=== PATIENT | male | born 1955 | race Caucasian/White ===

== ENCOUNTER 2019-04-07 14:57 | Emergency (ER) | payer OTHER, SELFPAY ==
[2019-04-07 14:58] VITALS: BP 192/113; PULSE 94; RESP 18; TEMP 36.7; O2SAT 93; BMI 36.5
[2019-04-07] MEDS: HYDROcodone Bitartrate/Apap 5/325 Tablet PO (15:14)
--- NOTE | 2019-04-07 15:14 | ED.VISSUMM ---
- ER Visit Summary Date of Service: 04/07/19 Chief Complaint: Fall History of Present Illness: The patient is a 63 M who fell 2 days ago. His foot got caught on the running boards when he was getting out of his full-size pickup. He landed on his left side. He complains of left-sided chest pain. Denies loss of consciousness. Denies head or neck pain or injury. He did hit his left upper arm as well, but it is not bothering him too much. Denies shortness of breath. Denies abdominal pain or back pain. Denies any hip or leg injury. He says the pain is worse with movement, breathing, and laying on his left side. He has been taking ibuprofen with minimal relief. He denies blood thinner use. Denies cough, hemoptysis, or any respiratory symptoms. Physical Examination: Afebrile and vital signs unremarkable except blood pressure is 192/113. He is alert and oriented. No acute distress. GCS 15. Breathing comfortably. Lungs are clear. Left lateral chest is tender to palpation without crepitus or any other abnormalities. Heart is regular. Abdomen soft. Back is nontender. Extremities nontender with good range of motion, strength, and sensation. Test Results: Chest and left rib series pending. Emergency Department Course and Treatment: Patient treated with [place] while awaiting results. I believe he has a chest wall contusion or possible rib fracture. He has no head or neck trauma. No other injuries, complaints, symptoms, or abnormal findings on exam. Will check chest and rib x-rays. X-rays negative. Patient treated with incentive spirometer and pain medicine. Follow-up with primary care for recheck. Patient was counseled about his hypertension. He will continue taking his medications and follow-up with his PCP for recheck and further care. Treatment Plan: As above Disposition: Discharge Impression: 1. Left chest wall pain 2. Hypertension This note was generated with [employer] software. It may contain incorrect words, spelling, and punctuation that were not noted in review of the chart prior to signing ED Disposition - Plan for ED Patient: Referrals: Melissa Victor MD [STAFF PHYSICIAN] -
[2019-04-07 15:16] VITALS: BP 171/115
--- NOTE | 2019-04-07 15:24 | RAD_ITS ---
STUDY: X-RAY - UNILATERAL RIBS ( LEFT ) WITH CHEST REASON FOR EXAM: Male, 63 years old. Fall. Rib pain. TECHNIQUE - RIBS: 4 view(s) of the ribs. TECHNIQUE - CHEST: Frontal view COMPARISON: None. FINDINGS - RIBS: There are age-indeterminate fractures of the right third through fifth ribs. There are no displaced left-sided rib fractures identified. FINDINGS - CHEST: The lungs are clear. There are no pleural effusions. There is no pneumothorax. The heart is normal in size. RAD/Ribs Uni Min 3V w/PA Chest IMPRESSION: RIBS: No displaced left-sided rib fracture identified. Age indeterminant right third through fifth rib fractures. CHEST: Clear lungs. Electronically Signed: Thompson Ortez, at 16:08 EDT Tel , Service support ,
--- NOTE | 2019-04-07 16:18 | ED.DEP ---
ED Disposition - Plan for ED Patient: Instructions: Chest Wall Contusion Prescriptions: Hydrocodone Bitart/Apap 5-325 [[place] 5MG-325MG] 1 tab PO Q6H PRN PRN 3 Days #10 tab PRN Reason: Pain Prescription Printed Referrals: Melissa Victor MD [STAFF PHYSICIAN] -
[2019-04-07 16:26] VITALS: BP 128/91; PULSE 82; RESP 18
== END 2019-04-07 16:28 | disposition home or self-care (01) ==
LOC: ED 15:42
PROVIDERS: Emergency Provider Emergency Medicine
DX: R07.89 Other chest pain (principal); I10 Essential (primary) hypertension; E11.9 Type 2 diabetes mellitus without complications; Z79.4 Long term (current) use of insulin; Z79.84 Long term (current) use of oral hypoglycemic drugs; Z79.899 Other long term (current) drug therapy; Z72.0 Tobacco use
CPT/HCPCS: 71101; 99283

== ENCOUNTER 2020-09-28 15:18 | Emergency (ER) | payer MEDICARE, SELFPAY ==
[2020-09-28 15:19] VITALS: BP 149/71; PULSE 115; RESP 16; TEMP 34.9; O2SAT 95; BMI 34.1
--- NOTE | 2020-09-28 15:45 | CT_ITS ---
STUDY: CT CERVICAL SPINE WITHOUT CONTRAST REASON FOR EXAM: Male, 65 years old. fall, neck pain RADIATION DOSAGE (If Supplied By Facility): CTDIvol = ( 25.98 ) mGy, DLP = ( 540.05 ) mGycm TECHNIQUE: High resolution transaxial imaging was performed without contrast material. Sagittal and coronal images were reconstructed. Individualized dose optimization techniques were used for this CT. COMPARISON: None FINDINGS: Normal craniovertebral junction. Normal anterior atlantoaxial articulation. Normal odontoid process. There is straightening of the normal cervical lordosis. Posterior fusion defect of the C1 vertebra which is a normal variant. C2-3: Mild left facet hypertrophy produces mild left neural foraminal stenosis. No central spinal stenosis. C3-4: Moderate broad disc osteophyte complex and bilateral uncovertebral hypertrophy produces moderate spinal stenosis and mild bilateral neural foraminal stenosis. C4-5: Normal endplates. Normal disc height and morphology. Normal central canal and intervertebral neuroforamina. C5-6: 2 mm retrolisthesis of C5 on C6 with a mild broad disc osteophyte complex and bilateral uncovertebral hypertrophy produces moderate spinal stenosis and mild bilateral neural foraminal stenosis. C6-7: Mild broad disc osteophyte complex and bilateral vertebral hypertrophy produces mild spinal stenosis and mild bilateral neural foraminal stenosis. C7-T1: Normal endplates. Normal disc height and morphology. Normal central canal and intervertebral neuroforamina. Normal visualized soft tissue structures. CT/Spine Cervical without Contras IMPRESSION: No acute fracture or subluxation. Electronically Signed: Jose Shore MD at 16:58 EST Tel , Service support ,
--- NOTE | 2020-09-28 15:45 | CT_ITS ---
STUDY: CT BRAIN WITHOUT CONTRAST REASON FOR EXAM: Male, 65 years old. fall, headache RADIATION DOSAGE (If Supplied By Facility): CTDIvol = ( 44.99 ) mGy, DLP = ( 846.73 ) mGycm TECHNIQUE: Transaxial CT imaging of the brain was performed without administration of intravenous contrast material. Individualized dose optimization techniques were used for this CT. COMPARISON: No relevant priors. FINDINGS: Normal soft tissue structures. Normal calvarium. Normal size ventricles and extra-axial spaces for the patient''s age. Normal white matter tracts of the cerebral hemispheres. Normal basal ganglia and thalami. Normal brainstem. Normal cerebellum. There is no intracranial hemorrhage. There are no findings of an acute ischemic infarction. Normal visualized paranasal sinuses. CT/Brain/Head without Contrast IMPRESSION: Normal unenhanced CT scan of the brain. Electronically Signed: Jose Shore MD at 16:51 EST Tel , Service support ,
--- NOTE | 2020-09-28 16:01 | ED.DCSUM_ITS ---
- ER Visit Summary Date of Service: 09/28/20 Chief Complaint: Fall History of Present Illness: The patient is a 65 M presenting after fall. Patient states he was walking out of [facility] and tripped and fell forward. He hit his head. He did not lose consciousness. He is not on anticoagulants. He has pain to his face, right shoulder, right hand. He denies other injuries. Physical Examination: Vitals are stable. Patient is afebrile. Alert no acute distress. HEENT exam abrasion to forehead and nose. No septal hematoma. No facial bony tenderness. Neck is nontender Lungs are clear and equal bilaterally. Heart is regular rate and rhythm. Abdomen is soft nontender nondistended. Extremities right anterior shoulder tenderness with active full range of motion. Abrasion right small finger with active full range of motion. Skin is warm and dry. No focal neurologic deficit. Remainder of exam is unremarkable. Emergency Department Course and Treatment: Patient was given tetanus IM. Abrasions were cleaned and dressed. Right shoulder x-ray shows normal x-ray examination of the shoulder. Right hand xray shows normal x-ray examination of the hand. Chest xray shows no active disease. CT cervical spine shows no acute fracture or subluxation. CT head normal unenhanced CT scan of the brain. Patient is given short course of [place] for home. Advised to follow-up with his primary care physician. Advised return to ED for worsening complaints. Disposition: Discharge home Impression: Mechanical fall, multiple abrasions, closed head injury, right shoulder contusion This note was generated with [employer] dictation software. It may contain incorrect words, spelling, and punctuation that were not noted in review of the chart prior to signing ED Disposition - Plan for ED Patient: Instructions: ED Mechanical Fall Prescriptions: Hydrocodone Bitart/Apap 5-325 [[place] 5MG-325MG] 1 tab PO Q6H PRN PRN 2 Days #10 tab PRN Reason: Pain Prescription Printed Referrals: Care Physician,No Primary [NON-STAFF] -
[2020-09-28] MEDS: Diphth,Pertuss(Acell),Tet Vac 0.5 ML Vial IM (16:10)
--- NOTE | 2020-09-28 16:30 | RAD_ITS ---
STUDY: X-RAY - RIGHT HAND REASON FOR EXAM: Male, 65 years old. fall, hand pain TECHNIQUE: 3 view(s) of the hand. COMPARISON: None. FINDINGS: Normal radiocarpal articulation. Normal distal radioulnar joint. Normal visualized carpal bones. Normal carpal articulations Normal carpometacarpal articulation of the thumb. Normal second through fifth carpometacarpal joints. Normal metacarpi. Normal metacarpophalangeal joint of the thumb. Normal interphalangeal joint of the thumb. Normal proximal and distal phalanges of the thumb. Normal metacarpophalangeal joints of the second through fifth fingers. Normal proximal and distal interphalangeal joints of the second through fifth fingers. Normal phalanges of the second through fifth fingers. The soft tissue structures are unremarkable. RAD/Hand Min 3 Views IMPRESSION: Normal x-ray examination of the hand. Electronically Signed: Jose Shore MD at 17:09 EST Tel , Service support ,
--- NOTE | 2020-09-28 16:30 | RAD_ITS ---
STUDY: X-RAY CHEST REASON FOR EXAM: Male, 65 years old. fall , chest pain TECHNIQUE: Single AP portable view of the chest. COMPARISON: 04/07/2019 FINDINGS: The lungs are clear and expanded. There is no demonstrated pleural abnormality. Normal size heart. Normal mediastinum and saeed. Normal visualized pulmonary arteries. Normal visualized aortic arch and descending thoracic aorta. Normal visualized thoracic spine. Multiple healed right rib fractures. There is no demonstrated abnormality of the visualized soft tissue structures of the upper abdomen. RAD/Chest 1 View IMPRESSION: No active disease. Electronically Signed: Joes Shore MD at 17:04 EST Tel , Service support ,
--- NOTE | 2020-09-28 16:30 | RAD_ITS ---
STUDY: X-RAY - RIGHT SHOULDER REASON FOR EXAM: Male, 65 years old. fall TECHNIQUE: 2 view(s) of the shoulder. COMPARISON: None. FINDINGS: Normal glenohumeral articulation. Normal acromioclavicular joint. Normal acromion. Normal humeral head and visualized proximal humerus. The soft tissue structures are unremarkable. Normal visualized pulmonary apex. RAD/Shoulder min 2 Views IMPRESSION: Normal x-ray examination of the shoulder. Electronically Signed: Jose Shore MD at 17:07 EST Tel , Service support ,
--- NOTE | 2020-09-28 18:12 | ED.DEP ---
ED Disposition - Plan for ED Patient: Instructions: ED Mechanical Fall Prescriptions: Hydrocodone Bitart/Apap 5-325 [[place] 5MG-325MG] 1 tab PO Q6H PRN PRN 2 Days #10 tab PRN Reason: Pain Prescription Printed Referrals: Care Physician,No Primary [NON-STAFF] -
[2020-09-28 18:43] VITALS: BP 114/91; PULSE 60; RESP 16; O2SAT 96
== END 2020-09-28 18:44 | disposition home or self-care (01) ==
LOC: ED 17:00
PROVIDERS: Emergency Provider Emergency Medicine; PCP Family Medicine
DX: S00.81XA Abrasion of other part of head, initial encounter (principal); S00.31XA Abrasion of nose, initial encounter; S60.416A Abrasion of right little finger, initial encounter; S40.011A Contusion of right shoulder, initial encounter; W01.0XXA Fall on same level from slipping, tripping and stumbling without subsequent striking against object, initial encounter; Y93.01 Activity, walking, marching and hiking; Y92.512 Supermarket, store or market as the place of occurrence of the external cause; Y99.8 Other external cause status; I10 Essential (primary) hypertension; E11.9 Type 2 diabetes mellitus without complications; F32.9 Major depressive disorder, single episode, unspecified; Z79.4 Long term (current) use of insulin; Z79.899 Other long term (current) drug therapy
CPT/HCPCS: 70450; 71045; 72125; 73030; 73130; 90471; 90715; 99282